=== PATIENT | male | born 1980 ===

== ENCOUNTER 2016-08-30 16:34 | Inpatient (IN) | payer OTHER ==
[~2016-08-30] VITALS: Ht 170.2 cm; Wt 89.2 kg
[2016-08-30] VITALS (284 sets, daily range): BP systolic 125–130; BP diastolic 98–99; PULSE 72–128; TEMP 98.2–98.6; O2SAT 92–100
[~2016-08-30 16:34] MED LIST: ASPIRIN 81M81 MG/TA2 PO; CARDIZEM CD 18180 MG PO; KLONOPIN 1MG1 MG PO; LEXAPRO 10MG10 MG PO; MULTAQ400 MG PO
[2016-08-31 02:00] VITALS: BP 117/88; PULSE 57; TEMP 98
== END 2016-08-31 05:06 | disposition left against medical advice (07) | DRG 310 ==
LOC: IMCU 16:34
DX: I48.0 Paroxysmal atrial fibrillation (principal)
CPT/HCPCS: 99223-AI; J1160; J3475

== ENCOUNTER 2017-01-09 00:16 | Inpatient (IN) | payer OTHER ==
[~2017-01-09] VITALS: Ht 175.3 cm; Wt 82.7 kg
[2017-01-09] VITALS (287 sets, daily range): BP systolic 98–127; BP diastolic 66–99; PULSE 59–110; TEMP 97.8–98.3; O2SAT 94–100
[2017-01-09] MEDS ORDERED: INDERAL LA 80MG80 MG PO (01:04)
[2017-01-09] MEDS ORDERED: ASPIRIN 81M81 MG/TA2 PO (01:18)
[2017-01-09 05:44] LABS: HEMATOCRIT 45.9 % (42.0-52.0); HEMOGLOBIN 16.4 g/dl (13.5-18.0); MEAN CELL VOLUME 89 fl (80.0-100.0); MEAN CORPUSCULAR HEMOGLOBIN 32 pg (27.0-31.0); MEAN CORPUSCULAR HGB CONC 36 g/dl (33.0-37.0); PLATELET COUNT 261 K/mm3 (130-400); RED BLOOD COUNT 5.15 M/mm3 (4.20-5.60); REDCELL DISTRIBUTION WIDTH-CV 13.1 % (11.5-14.5); WHITE BLOOD COUNT 5.2 K/mm3 (4.8-10.8)
[2017-01-09 05:50] LABS: ADJUSTED CALCIUM 7.8 mg/dL (8.4-10.2); ALBUMIN 4.2 gm/dL (3.5-5.0); CREATININE, serum 0.7 mg/dL (0.66-1.25); INR 1.1 (0.8-3.0); POTASSIUM 3.8 mmol/L (3.4-5.0); PROTHROMBIN TIME 12.7 SECONDS (9.7-12.8)
[2017-01-09] MEDS ORDERED: ASPIRIN 32325 MG/TAB PO (16:40)
[2017-01-09] MEDS ORDERED: CARDIZEM CD 18180 MG PO (16:42)
== END 2017-01-09 17:48 | disposition home or self-care (01) | DRG 310 ==
LOC: ICU 00:16
PROVIDERS: Internal Medicine
DX: I48.0 Paroxysmal atrial fibrillation (principal); F41.9 Anxiety disorder, unspecified; R10.31 Right lower quadrant pain; F17.220 Nicotine dependence, chewing tobacco, uncomplicated
CPT/HCPCS: 99223-AI; 99239; J1650; J7050